=== PATIENT | female | born 1945 | race Two or more races ===

== ENCOUNTER 2022-11-01 12:05 | Emergency (ER) | payer OTHER ==
[~2022-11-01] VITALS: Ht 144.8 cm; Wt 54.5 kg
[2022-11-01 12:15] VITALS: BP 129/64
[2022-11-01 12:50] LABS: Urine Bacteria NONE SEEN /hpf (None Seen); Urine Blood TRACE /uL (Negative); Urine Hyaline Cast FEW /lpf (0 - 2); Urine WBC 374 /hpf (0 - 5); Urine WBC Clumps PRESENT /hpf (None Seen)
[2022-11-01] MEDS ORDERED: cefTRIAXone SOD 1,000 MG VL IM ONE (14:15)
[2022-11-01] MEDS ORDERED: ACETAMINOPHEN 500 MG TAB PO ONE (14:15)
[2022-11-01] MEDS ORDERED: LIDOCAINE 1% HCL (LOCAL ANESTH.) INJ 20ML MDV ID ONE (14:15)
[2022-11-01] MEDS ORDERED: PHEN1TAB38 PO ×3 (14:16→14:17)
[2022-11-01] MEDS ORDERED: ACET1CAP14 PO ×3 (14:16→14:17)
[2022-11-01] MEDS ORDERED: BACDST PO ×3 (14:16→14:17)
== END 2022-11-01 15:01 | disposition home or self-care (01) ==
LOC: ER 12:05
DX: N39.0 Urinary tract infection, site not specified (principal); Z88.6 Allergy status to analgesic agent; Z88.2 Allergy status to sulfonamides
CPT/HCPCS: 81001; 96372; 99283; J0696; J2001